=== PATIENT | female | born 2005 | race Caucasian/White ===

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

== ENCOUNTER 2023-01-02 11:35 | Emergency (ER) | payer OTHER, SELFPAY ==
--- NOTE | 2023-01-02 12:02 | ED.GENADULT ---
HPI - General Adult General Chief complaint: Psychiatric Symptoms Stated complaint: psych symptoms History of Present Illness HPI narrative: 17-year-old female presenting to the ED for evaluation after self-inflicted superficial laceration to her neck. Patient states that she did not do this with the intent to kill herself but did this as a stress reliever. Patient denies any homicidal suicidal ideation. Patient does have a history of psychiatric illness. Patient does live at home with her parents and states that she got into a verbal argument with her parents and this triggered her anxiety. Related Data Home Medications Medication Instructions Recorded Confirmed duloxetine 60 mg capsule,delayed 60 mg PO BID 09/03/21 11/02/22 release buspirone 5 mg tablet 5 mg PO BID 11/02/22 11/02/22 clonidine HCl 0.1 mg tablet 0.1 mg PO HS 11/02/22 11/02/22 nitrofurantoin 100 mg PO BID 11/02/22 11/02/22 monohydrate/macrocrystals 100 mg capsule Allergies Allergy/AdvReac Type Severity Reaction Status Date / Time No Known Allergies Allergy Verified 12/16/22 09:39 Review of Systems Review of Systems: All systems reviewed & are unremarkable except as noted in HPI and below PMFSH Past Medical History Medical History Anxiety Depression Psychosocial problem Self-harming behavior Surgical History Surgical History No pertinent past surgical history Family History Family History Grandparent Cerebrovascular accident Congestive heart failure Diabetes mellitus Hypertension Prostate carcinoma Father Chronic obstructive pulmonary disease Liver cancer Kidney failure Hepatitis B Seizure Mother Chronic obstructive pulmonary disease Hypertension Social History Social History Smoking status: Current every day smoker Tobacco type: e-cigarettes/vaping Substance use: current Substance use type: does not use Lack of Transportation: No Lack of Food: Sometimes True Current Housing: I Have Housing Concerned About Future Housing: No Difficulty Paying Gas/Electric Bills: No Difficulty Paying for Meds: No Currently Unemployed: YES Education: Grade School Difficulty w/ Childcare or Family Care: No Spiritual care concerns: No Exam Narrative: APPEARANCE: Well appearing, no pain, no distress, well-nourished. HEAD: normocephalic, atraumatic. EYES: PERRLA/EOMI, conjunctivae clear. NOSE: Normal no drainage NECK: Supple. No adenopathy, no masses. RESPIRATORY: Airway patent, respirations nonlabored. Clear to auscultation bilaterally, no rales, rhonchi, wheezing. CARDIOVASCULAR: Regular rate and rhythm without murmurs rubs or gallops. ABDOMINAL: Soft, nontender, nondistended, normal bowel sounds MUSCULOSKELETAL: Moves all extremities. Strength/ROM intact, No edema, No calf tenderness. NEURO: Alert. Cranial nerves II through XII intact. Grossly intact SKIN: Warm, dry. Normal Color PSYCHIATRIC: Anxiety and tearful affect Course Course Emergency Course: 17-year-old female presented the ED for evaluation of increased anxiety and an episode of self-harm. Patient denies any urinary symptoms. Urine culture is pending. Since patient is asymptomatic patient will not be treated with antibiotics for urinary tract infection. Patient was evaluated by the crisis counselor and patient continues to deny any homicidal or suicidal ideation. Patient signed a safety agreement and patient feels safe with the plan for discharge and close follow-up. All question concerns were addressed Reevaluation(s) Reevaluation #1: Patient is medically cleared to be evaluated by the crisis counselor. Patient is medically cleared for transport and inpatient psychiatric treatment is
[2023-01-02 12:14] VITALS: BP 148/71; PULSE 117; RESP 22; TEMP 36.3; O2SAT 97
[2023-01-02 12:24] LABS: Basophils Percent Auto 0.3 % (0.2-1.2); Eosinophils Absolute Auto 0.4 K/mm3 (0-0.3); Eosinophils Percent Auto 2.8 % (0-4.4); Hematocrit 39.3 % (37.0-47.0); Hemoglobin 11.8 g/dL (12.0-15.0); Immature Granulocyte Percent A 0.8 % (0-0.5); Lymphocytes Absolute Auto 3.09 K/mm3 (0.9-3.2); Lymphocytes Percent Auto 23.8 % (18.3-44.2); Mean Corpuscular Hemoglobin 24.2 pg (26-34); Mean Corpuscular Volume 80.7 fl (80-100); Mean Platelet Volume 9.5 fl (7.4-10.4); Monocytes Absolute Auto 0.6 K/mm3 (0.1-0.6); Monocytes Percent Auto 4.8 % (2.6-8.5); Neutrophils Absolute Auto 8.8 K/mm3 (1.3-6.7); Neutrophils Percent Auto 67.5 % (45.5-73.1); Platelet Count Result 408 k/mm3 (150-375); Red Blood Count 4.87 M/mm3 (4.2-5.4); Red Cell Distribution Width 15.4 % (11.5-14.5)
[2023-01-02 12:34] LABS: Acetaminophen < 10 ug/mL (10-30); Ethanol < 10 mg/dL (<10); Salicylate < 1.0 mg/dL (2-20)
[2023-01-02 12:35] LABS: Alanine Aminotransferase 152 U/L (6-35); Albumin Level 4.3 g/dL (3.7-5.6); Alkaline Phosphatase 55 U/L (45-116); Anion Gap 15 mmol/L (8-16); Aspartate Amino Transferase 59 U/L (14-36); Bilirubin,Total 0.4 mg/dL (0.2-1.3); Blood Urea Nitrogen 8 mg/dL (8-21); Carbon Dioxide 18 mmol/L (22-30); Chloride 109 mmol/L (98-107); Estimated Glomerular Filt Rate > 60; Glucose 139 mg/dL (65-110); Potassium 3.3 mmol/L (3.4-5.0); Sodium 142 mmol/L (134-143)
--- NOTE | 2023-01-02 13:01 | PC.NURSE ---
the patient demonstrated behaviors that are a threat to themselves, self harm to the neck. ER provider has seen and evaluated this patient face to face. The patient's immediate situation notes agitation with home situation, and threat to self. Patient identified as a suicide risk and placed in ED15, safe room. Patient placed in green scrubs. Patient belongings removed from room and secured.
[2023-01-02 13:22] LABS: Appearance Urine Turbid (Clear); Bacteria Urine 4+ /hpf; Bilirubin Urine Negative (Negative); Color Urine Yellow (Yellow); Glucose Urine UA Negative (Negative); Hyaline Casts Urine Present /lpf; Ketones Urine Trace mg/dL (Negative); Leukocyte Esterase Ur 2+ LEU/UL (Negative); Need Manual Microscopic Reviewed; Nitrate Urine Negative (Negative); Protein Urine 3+ mg/dL (Negative); Squamous Epithelial Cell Urine Many /hpf (Few); WBC Urine >100 /hpf
[2023-01-02 13:36] LABS: Amphetamine Screen Urine Negative (Negative); Barbiturate Screen Urine Negative (Negative); Benzodiazepines Screen Urine Negative (Negative); Cannabinoid Screen Urine Positive (Negative); Cocaine Screen Urine Negative (Negative); Methadone Screen Urine Negative (Negative); Opiate Screen Urine Negative (Negative); Phencyclidine Screen Urine Negative (Negative)
[2023-01-02 13:41] LABS: Add Urine Microscopic? YES
[2023-01-02] MEDS: POTASSIUM CHLORIDE 20 MEQ PACKET (FOR LIQUID) 40 MEQ PO (13:43)
[2023-01-02 15:35] VITALS: BP 119/64; PULSE 67; RESP 20; TEMP 36.6; O2SAT 98
== END 2023-01-02 15:42 | disposition home or self-care (01) ==
PROVIDERS: Emergency Provider Emergency Medicine; PCP Radiology Diagnostic Radiology
DX: F32.A Depression, unspecified (principal); F41.9 Anxiety disorder, unspecified; R45.88 Nonsuicidal self-harm; S10.90XA Unspecified superficial injury of unspecified part of neck, initial encounter; X78.9XXA Intentional self-harm by unspecified sharp object, initial encounter; F17.290 Nicotine dependence, other tobacco product, uncomplicated
CPT/HCPCS: 36415; 80053; 80307; 81001; 81025; 85025; 87086; 87088; 99284; A9270

== ENCOUNTER 2023-09-14 21:20 | Emergency (ER) | payer OTHER, SELFPAY ==
--- NOTE | ~2023-09-14 | CT_ITS ---
Noncontrast CT scan of the cervical spine Technique: Multiple contiguous axial [address] images of the cervical spine were obtained and rec onstructed in 2D sagittal and coronal planes on the acquisition scanner. Dose reduction technique was used on this scan by utilizing automated exposure control, adjustment of the mA and/or kV according to patient size. The dose-length product (DLP) was 501.29 mGy-cm. Clinical History: Pain Findings: No fractures or dislocations. There is mild reversal of the normal cervical lordosis. Othe rwise unremarkable visualized bony structures. The intervertebral disc spaces are preserved. No prev ertebral soft tissue swelling. Impression: No fracture or subluxation of the cervical spine. Mild reversal of the normal cervical lordosis. Reviewed, dictated and finalized at location . Impression: No fracture or subluxation of the cervical spine. Mild reversal of the normal cervical lordosis.
--- NOTE | ~2023-09-14 | CT_ITS ---
Non-contrast Head CT History: Headache Technique: Axial non-contrast imaging of the brain was performed. Dose reduction technique was used on this scan by utilizing automated exposure control and iterative reconstruction technique. The dose -length product (DLP) was 529.67 mGy-cm. Findings: There is no evidence of intracranial hemorrhage, mass lesion, or acute infarct. Brain par enchyma appears normal. The ventricles and subarachnoid spaces are normal in size. The calvarium ap pears normal. The visualized paranasal sinuses and mastoid air cells are clear. Impression: No significant abnormality seen. Reviewed, dictated and finalized at location . Impression: No significant abnormality seen.
[2023-09-14 21:25] VITALS: BP 120/60; PULSE 88; RESP 16; TEMP 37.1; O2SAT 98
[2023-09-15] MEDS: ACETAMINOPHEN 500 MG TABLET 1000 MG PO (00:22)
[2023-09-15] MEDS: diazePAM INJ (*CRX) 10 MG/2 ML SYRINGE 5 MG IM (00:24)
--- NOTE | 2023-09-15 00:26 | ED.HA ---
HPI - Headache General Chief Complaint: Headache Stated Complaint: NECK PAIN/HEADACHE Time Seen by Provider: 09/14/23 23:41 Source: patient Mode of arrival: ambulatory Limitations: no limitations History of Present Illness HPI Narrative: This is a 18 year old female that presents to the ER for neck pain. Reports earlier she was stretching and felt a pop. Reports pain and decreased ROM since. Reports she has been struggling with headaches for months. Reports they seem to be stress induced. She takes Ibuprofen with relief. Denies fever, vomiting, numbness or weakness. Related Data Home Medications Medication Instructions Recorded Confirmed duloxetine 60 mg capsule,delayed 60 mg PO BID 09/03/21 11/02/22 release buspirone 5 mg tablet 5 mg PO BID 11/02/22 11/02/22 clonidine HCl 0.1 mg tablet 0.1 mg PO HS 11/02/22 11/02/22 nitrofurantoin 100 mg PO BID 11/02/22 11/02/22 monohydrate/macrocrystals 100 mg capsule Allergies Allergy/AdvReac Type Severity Reaction Status Date / Time No Known Allergies Allergy Verified 09/14/23 21:28 Review of Systems Review of Systems: CONSTITUTIONAL: Denies fever EYES: Denies visual changes GASTROINTESTINAL: Denies vomiting MUSCULOSKELETAL: Reports joint pain, and myalgia. NEUROLOGIC: Reports headache. Denies numbness, or weakness. All systems reviewed & are unremarkable except as noted in HPI and below PMFSH Past Medical History Medical History Anxiety Depression Psychosocial problem Self-harming behavior Surgical History Surgical History No pertinent past surgical history Family History Family History Grandparent Cerebrovascular accident Congestive heart failure Diabetes mellitus Hypertension Prostate carcinoma Father Chronic obstructive pulmonary disease Liver cancer Kidney failure Hepatitis B Seizure Mother Chronic obstructive pulmonary disease Hypertension Social History Social History Smoking status: Current every day smoker Tobacco type: e-cigarettes/vaping Substance use: current Substance use type: does not use Lack of Transportation: No Lack of Food: Sometimes True Current Housing: I Have Housing Concerned About Future Housing: No Difficulty Paying Gas/Electric Bills: No Difficulty Paying for Meds: No Currently Unemployed: YES Education: Grade School Difficulty w/ Childcare or Family Care: No Spiritual care concerns: No Exam Narrative: GENERAL: Well-appearing, well-nourished, and in no acute distress. HEAD: Normocephalic, atraumatic. EYES: PERRLA and EOMI. ENT: Nares clear, no rhinorrhea or epistaxis. Mucous membranes moist. Oropharynx without tonsillar hypertrophy exudate or other lesions. Bilateral TMs pearly preciado non-bulging NECK: Supple. No adenopathy or masses. Normal range of motion. Tender to palpation of paraspinal musculature bilaterally CHEST: Clear to auscultation. No respiratory distress. No wheezes rales or rhonchi HEART: Regular rate and rhythm. No murmur heard. Normal peripheral pulses. EXTREMITIES: Normal range of motion. No edema. Strength equal in bilateral upper extremities (5/5) SKIN: Warm, dry, no rash. NEURO: No focal deficits. Alert and oriented x3. Cranial nerves 2-12 grossly intact PSYCH: Normal mood and affect Course Course Emergency Course: Patient updated on her workup and agrees with plan of care Vital Signs Vital signs: Vital Signs Temperature 98.8 F 09/14/23 21:25 Pulse Rate 88 09/14/23 21:25 Respiratory Rate 16 09/14/23 21:25 Blood Pressure 120/60 09/14/23 21:25 Pulse Oximetry 98 09/14/23 21:25 Oxygen Delivery Room Air 09/14/23 21:25 Temperature 98.8 F 09/14/23 21:25 Pulse Rate 82 05
[2023-09-15 02:39] VITALS: BP 130/74; PULSE 82; RESP 18; O2SAT 100
== END 2023-09-15 03:20 | disposition home or self-care (01) ==
PROVIDERS: Emergency Provider Physician Assistant; PCP Radiology Diagnostic Radiology
DX: M54.2 Cervicalgia (principal); R51.9 Headache, unspecified; F41.9 Anxiety disorder, unspecified; F32.A Depression, unspecified; F17.290 Nicotine dependence, other tobacco product, uncomplicated
CPT/HCPCS: 70450; 72125; 96372; 99284; A9270; J3360

== ENCOUNTER 2023-09-17 20:23 | Emergency (ER) | payer OTHER, SELFPAY ==
[2023-09-17 20:25] VITALS: BP 120/58; PULSE 81; RESP 18; TEMP 36.8; O2SAT 99
--- NOTE | 2023-09-17 20:42 | ED.DENTAL ---
HPI - Dental/Oral General Chief complaint: Dental/Oral Stated complaint: tooth hurts, black and cracked, top right Time Seen by Provider: 09/17/23 20:24 Source: patient Mode of arrival: ambulatory Limitations: no limitations History of Present Illness HPI Narrative: Patient is a 18-year-old female who presents the ED with report of right upper dental pain. Patient reports she has had pain in her right upper posterior molar, tooth #2 since yesterday morning. Has been taking Tylenol and ibuprofen without improvement. Reports a crack in this tooth, unsure when this occurred. She has not tried following up with a dentist. Denies drainage from tooth, difficulty breathing or swallowing, fevers, vomiting. Related Data Home Medications Medication Instructions Recorded Confirmed duloxetine 60 mg capsule,delayed 60 mg PO BID 09/03/21 11/02/22 release buspirone 5 mg tablet 5 mg PO BID 11/02/22 11/02/22 clonidine HCl 0.1 mg tablet 0.1 mg PO HS 11/02/22 11/02/22 nitrofurantoin 100 mg PO BID 11/02/22 11/02/22 monohydrate/macrocrystals 100 mg capsule Allergies Allergy/AdvReac Type Severity Reaction Status Date / Time No Known Allergies Allergy Verified 09/14/23 21:28 Review of Systems Review of Systems: CONSTITUTIONAL: Denies fever, chills, or sweats. ENT: See HPI CARDIOVASCULAR: Denies chest pain RESPIRATORY: Denies cough or dyspnea. GASTROINTESTINAL: Denies abdominal pain, nausea, vomiting All systems reviewed & are unremarkable except as noted in HPI and below PMFSH Past Medical History Medical History Anxiety Depression Psychosocial problem Self-harming behavior Surgical History Surgical History No pertinent past surgical history Family History Family History Grandparent Cerebrovascular accident Congestive heart failure Diabetes mellitus Hypertension Prostate carcinoma Father Chronic obstructive pulmonary disease Liver cancer Kidney failure Hepatitis B Seizure Mother Chronic obstructive pulmonary disease Hypertension Social History Social History Smoking status: Current every day smoker Tobacco type: e-cigarettes/vaping Substance use: current Substance use type: does not use Lack of Transportation: No Lack of Food: Sometimes True Current Housing: I Have Housing Concerned About Future Housing: No Difficulty Paying Gas/Electric Bills: No Difficulty Paying for Meds: No Currently Unemployed: YES Education: Grade School Difficulty w/ Childcare or Family Care: No Spiritual care concerns: No Exam Narrative: GENERAL: Well appearing, obese with BMI of 32.3, non-toxic, in no acute distress. HEAD: Normocephalic, atraumatic. ENT: Poor dentition. Scattered dental caries. Doreen noted to tooth #2, tenderness along outer gumline surrounding tooth, no focal abscess or fluctuance. No trismus or stridor. MMs moist. RESPIRATORY: Airway patent, respirations nonlabored. No stridor or distress. CARDIOVASCULAR: Regular rate and rhythm MUSCULOSKELETAL: Moves all extremities. No gross deformities. SKIN: Warm, dry, normal color. NEURO: A&O X3. Speech clear. PSYCHIATRIC: Appropriate mood and affect. Normal interaction. Course Vital Signs Vital signs: Vital Signs Temperature 98.3 F 09/17/23 20:25 Pulse Rate 81 09/17/23 20:25 Respiratory Rate 18 09/17/23 20:25 Blood Pressure 120/58 L 09/17/23 20:25 Pulse Oximetry 99 09/17/23 20:25 Oxygen Delivery Room Air 09/17/23 20:25 Temperature 98.3 F 09/17/23 20:25 Pulse Rate 81 09/17/23 20:25 Respiratory Rate 18 09/17/23 20:25 Blood Pressure 120/58 L 09/17/23 20:25 Pulse Oximetry 99 09/17/23 20:25 Oxygen Delivery Room Air 09/17/23 20:25
[2023-09-17] MEDS: AMOXICILLIN/CLAVULANATE K 875-125 MG TAB 1 TABLET PO (20:48)
[2023-09-17] MEDS: KETOROLAC (*BKC) 60 MG/2 ML VIAL IM (20:48)
== END 2023-09-17 21:26 | disposition home or self-care (01) ==
LOC: ANHED 20:58
PROVIDERS: Emergency Provider Physician Assistant; PCP Internal Medicine Gastroenterology
DX: K08.89 Other specified disorders of teeth and supporting structures (principal); K02.9 Dental caries, unspecified
CPT/HCPCS: 96372; 99283; A9270; J1885

== ENCOUNTER 2023-12-03 19:54 | Emergency (ER) | payer MEDICAID, SELFPAY ==
[2023-12-03 19:55] VITALS: BP 103/50; PULSE 76; RESP 20; TEMP 36.5; O2SAT 100
--- NOTE | 2023-12-03 21:34 | ED.EAR ---
HPI - Ear Problem General Chief complaint: Ear Stated complaint: dental pain Time Seen by Provider: 12/03/23 20:58 History of Present Illness HPI Narrative: 18-year-old female presents to the emergency department for bilateral ear pain. States it feels like her ears are clogged. Also states that she notices crusting on her pillow after she lays down. Denies fever, nausea vomiting. Related Data Home Medications Medication Instructions Recorded Confirmed duloxetine 60 mg capsule,delayed 60 mg PO BID 09/03/21 11/02/22 release buspirone 5 mg tablet 5 mg PO BID 11/02/22 11/02/22 clonidine HCl 0.1 mg tablet 0.1 mg PO HS 11/02/22 11/02/22 nitrofurantoin 100 mg PO BID 11/02/22 11/02/22 monohydrate/macrocrystals 100 mg capsule Allergies Allergy/AdvReac Type Severity Reaction Status Date / Time No Known Allergies Allergy Verified 12/03/23 20:00 Review of Systems Review of Systems: All systems reviewed & are unremarkable except as noted in HPI and below PMFSH Past Medical History Medical History Anxiety Depression Psychosocial problem Self-harming behavior Surgical History Surgical History No pertinent past surgical history Family History Family History Grandparent Cerebrovascular accident Congestive heart failure Diabetes mellitus Hypertension Prostate carcinoma Father Chronic obstructive pulmonary disease Liver cancer Kidney failure Hepatitis B Seizure Mother Chronic obstructive pulmonary disease Hypertension Social History Social History Smoking status: Current every day smoker Tobacco type: e-cigarettes/vaping Substance use: current Substance use type: does not use Lack of Transportation: No Lack of Food: Sometimes True Current Housing: I Have Housing Concerned About Future Housing: No Difficulty Paying Gas/Electric Bills: No Difficulty Paying for Meds: No Currently Unemployed: YES Education: Grade School Difficulty w/ Childcare or Family Care: No Spiritual care concerns: No Exam Narrative: GENERAL: Well-appearing, well-nourished, and in no acute distress. HEAD: Normocephalic, atraumatic. EYES: PERRLA and EOMI. ENT: Nares clear, no rhinorrhea or epistaxis. Mucous membranes moist. Bilateral TMs are preciado nonbulging with serous otitis media. Normal light reflex. Canals mildly erythematous without active drainage. No mastoid tenderness bilaterally. Pain with movement of pinna bilaterally NECK: Supple. CHEST: Clear to auscultation. No respiratory distress. HEART: Regular rate and rhythm. No murmur heard. Normal peripheral pulses. EXTREMITIES: Normal range of motion. No edema. SKIN: Warm, dry, no rash. NEURO: No focal deficits. Alert and oriented x3 Course Vital Signs Vital signs: Vital Signs Temperature 97.7 F 12/03/23 19:55 Pulse Rate 76 12/03/23 19:55 Respiratory Rate 20 12/03/23 19:55 Blood Pressure 103/50 L 12/03/23 19:55 Pulse Oximetry 100 12/03/23 19:55 Oxygen Delivery Room Air 12/03/23 19:55 Temperature 97.7 F 12/03/23 19:55 Pulse Rate 76 12/03/23 19:55 Respiratory Rate 20 12/03/23 19:55 Blood Pressure 103/50 L 12/03/23 19:55 Pulse Oximetry 100 12/03/23 19:55 Oxygen Delivery Room Air 12/03/23 19:55 Medical Decision Making [facility] Narrative Medical decision making narrative: 18-year-old female presents emergency department for bilateral ear pain, clotting sensation and crusting out of her ear. Vital stable. She is afebrile nontoxic appearing. Exam is significant for bilateral serous otitis media. TMs are otherwise preciado nonbulging with normal light reflex. She does have pain with movement of the pinna and mildly erythematous canals. Given exam
[2023-12-03 21:47] VITALS: BP 108/56; PULSE 68; RESP 16; O2SAT 100
== END 2023-12-03 21:48 | disposition home or self-care (01) ==
PROVIDERS: Emergency Provider Physician Assistant; PCP Internal Medicine Gastroenterology
DX: H65.03 Acute serous otitis media, bilateral (principal); H60.503 Unspecified acute noninfective otitis externa, bilateral; F41.9 Anxiety disorder, unspecified; F32.A Depression, unspecified; F17.290 Nicotine dependence, other tobacco product, uncomplicated; Z79.899 Other long term (current) drug therapy
CPT/HCPCS: 99283

== ENCOUNTER 2023-12-16 22:09 | Emergency (ER) | payer MEDICAID, SELFPAY ==
[2023-12-16 22:23] VITALS: BP 113/58; PULSE 111; RESP 20; TEMP 37.3; O2SAT 99
[2023-12-17] VITALS (9 sets, daily range): BP systolic 93–117; BP diastolic 51–67; PULSE 86–98; RESP 14–23; O2SAT 97–100
[2023-12-17 05:44] LABS: BEDSIDEPREGUCG Negative
[2023-12-17 05:53] LABS: Add Urine Microscopic? YES; Appearance Urine Turbid (Clear); Bacteria Urine 4+ /hpf; Bilirubin Urine Negative (Negative); Blood Urine Negative (Negative); Color Urine Dark Yellow (Yellow); Glucose Urine UA Negative (Negative); Ketones Urine Negative (Negative); Leukocyte Esterase Ur 2+ LEU/UL (Negative); Need Manual Microscopic Reviewed; Nitrate Urine Negative (Negative); Non Pathogenic Casts 0-2; Protein Urine 1+ mg/dL (Negative); Specific Grav Ur 1.021 (1.001-1.035); Squamous Epithelial Cell Urine Many /hpf (Few); WBC Urine >100 /hpf (0-3); pH Urine 5.5 (5.0-9.0)
--- NOTE | 2023-12-17 06:06 | ED.BACK ---
HPI - Back Pain/Injury General Chief Complaint: Back Pain/Injury Stated Complaint: back pain radiating up body Time Seen by Provider: 12/17/23 06:02 Source: patient and other Mode of arrival: ambulatory Limitations: no limitations History of Present Illness HPI Narrative: Patient presents with left flank pain/back pain as well as pain throughout the left side of her body and into her legs. Also nausea. 6/10 pain now. She had been seen at [facility] 2 days ago and diagnosed with gastritis but prescribed Naproxen and Flexeril. Work up reportedly included labs, UA, and a CT scan. Has not been taking the Naproxen. Feels like she has a lung tightness and squeezing. Not on antibiotics. She missed work and is hoping for a work note for today since she has been in the ED for several hours spanning overnight. Has been having dysuria, urgency and frequency but no hematuria. Related Data Home Medications Medication Instructions Recorded Confirmed duloxetine 60 mg capsule,delayed 60 mg PO BID 09/03/21 11/02/22 release buspirone 5 mg tablet 5 mg PO BID 11/02/22 11/02/22 clonidine HCl 0.1 mg tablet 0.1 mg PO HS 11/02/22 11/02/22 nitrofurantoin 100 mg PO BID 11/02/22 11/02/22 monohydrate/macrocrystals 100 mg capsule Allergies Allergy/AdvReac Type Severity Reaction Status Date / Time No Known Allergies Allergy Verified 12/16/23 22:27 [facility] Past Medical History Medical History Anxiety Depression History of epidural anesthesia 2022 Psychosocial problem Self-harming behavior Surgical History Surgical History No pertinent past surgical history Family History Family History Grandparent Cerebrovascular accident Congestive heart failure Diabetes mellitus Hypertension Prostate carcinoma Father Chronic obstructive pulmonary disease Liver cancer Kidney failure Hepatitis B Seizure Mother Chronic obstructive pulmonary disease Hypertension Social History Social History Smoking status: Current every day smoker Tobacco type: e-cigarettes/vaping Substance use: current Substance use type: does not use Lack of Transportation: No Lack of Food: Sometimes True Current Housing: I Have Housing Concerned About Future Housing: No Difficulty Paying Gas/Electric Bills: No Difficulty Paying for Meds: No Currently Unemployed: YES Education: Grade School Difficulty w/ Childcare or Family Care: No Spiritual care concerns: No Exam Narrative: GENERAL: Well-appearing, well-nourished, and in no acute distress. HEAD: Normocephalic, atraumatic. EYES: Non injected, non icteric ENT: Nares clear, no rhinorrhea or epistaxis. Tacky mucous membranes. NECK: Supple. CHEST: Speaking in full sentences. No respiratory distress. HEART: Regular rate and rhythm. . ABDOMEN: Soft, nondistended. : CVA tenderness on the left; absent on the right. EXTREMITIES: Normal range of motion. No lower extremity edema. SKIN: Warm, dry, no rash. NEURO: No focal deficits. Alert and oriented x3. PSYCH: Normal mood and affect. Course Vital Signs Vital signs: Vital Signs Temperature 99.2 F 12/16/23 22:23 Pulse Rate 111 H 12/16/23 22:23 Respiratory Rate 20 12/16/23 22:23 Blood Pressure 113/58 L 12/16/23 22:23 Pulse Oximetry 99 12/16/23 22:23 Oxygen Delivery Room Air 12/16/23 22:23 Temperature 99.2 F 12/16/23 22:23 Pulse Rate 89 12/17/23 07:01 Respiratory Rate 22 H 12/17/23 07:01 Blood Pressure 101/67 12/17/23 07:01 Pulse Oximetry 100 12/17/23 07:01 Oxygen Delivery Room Air 12/17/23 05:22 MDM - Back Pain/Injury MDM Narrative Medical decision making narrative: Patient presents with multiple complaints. Recently seen at
[2023-12-17] MEDS: SODIUM CHLORIDE 0.9% IV 1,000 ML 999 ML IV CONT (06:37)
[2023-12-17] MEDS: ONDANSETRON INJ 4 MG/2 ML VIAL IV PUSH (06:38)
[2023-12-17] MEDS: KETOROLAC 15 MG/ML VIAL (*BKC) IV PUSH (06:42)
== END 2023-12-17 07:28 | disposition home or self-care (01) ==
PROVIDERS: Emergency Provider Student in an Organized Health Care Education/Training Program; PCP Internal Medicine Gastroenterology
DX: N12 Tubulo-interstitial nephritis, not specified as acute or chronic (principal); R11.0 Nausea; M54.9 Dorsalgia, unspecified; F41.9 Anxiety disorder, unspecified; F32.A Depression, unspecified; F17.290 Nicotine dependence, other tobacco product, uncomplicated
CPT/HCPCS: 81001; 81025; 87086; 87088; 96365; 96375; 99284; J0696; J1885; J2405; J7030

== ENCOUNTER 2024-02-12 14:30 | Emergency (ER) | payer OTHER, SELFPAY ==
[2024-02-12 14:32] VITALS: BP 107/59; PULSE 120; RESP 18; TEMP 37.6; O2SAT 99
--- NOTE | 2024-02-12 15:48 | ED.FEMALEGU ---
HPI - Female Genitourinary General Chief complaint: Urogenital-Female Stated complaint: kidney infection Time Seen by Provider: 02/12/24 15:40 Focused HPI: Patient is a 19-year-old female who presents to the ER with bilateral back pain for 2 days. She reports her right side is worse than her left. Patient endorses pain that radiates across her upper buttocks, then travels up her spine. she also endorses a headache. Patient reports she has had burning with urination and difficulty emptying her bladder. She reports her medical history includes multiple UTIs and ENT issues. Patient denies chest pain, shortness a breath, abdominal pain. GENERAL: Well-appearing, well-nourished, and in no acute distress. HEAD: Normocephalic, atraumatic. CHEST: Clear to auscultation. ?No respiratory distress. HEART: Regular rate and rhythm.? NEURO: ?Alert and oriented x3. Patient screened in triage and initial orders placed.? ?Additional care and disposition to be based upon?diagnostic testing and treatment. Related Data Home Medications Medication Instructions Recorded Confirmed duloxetine 60 mg capsule,delayed 60 mg PO BID 09/03/21 11/02/22 release buspirone 5 mg tablet 5 mg PO BID 11/02/22 11/02/22 clonidine HCl 0.1 mg tablet 0.1 mg PO HS 11/02/22 11/02/22 nitrofurantoin 100 mg PO BID 11/02/22 11/02/22 monohydrate/macrocrystals 100 mg capsule Allergies Allergy/AdvReac Type Severity Reaction Status Date / Time No Known Allergies Allergy Verified 02/12/24 14:31 [facility] Past Medical History Medical History Anxiety Depression History of epidural anesthesia 2022 Psychosocial problem Self-harming behavior Surgical History Surgical History No pertinent past surgical history Family History Family History Grandparent Cerebrovascular accident Congestive heart failure Diabetes mellitus Hypertension Prostate carcinoma Father Chronic obstructive pulmonary disease Liver cancer Kidney failure Hepatitis B Seizure Mother Chronic obstructive pulmonary disease Hypertension Social History Social History (Reviewed 12/03/23 @ 21:35 by JOANN Singh Smoking status: Current every day smoker Tobacco type: e-cigarettes/vaping Substance use: current Substance use type: does not use Lack of Transportation: No Lack of Food: Sometimes True Current Housing: I Have Housing Concerned About Future Housing: No Difficulty Paying Gas/Electric Bills: No Difficulty Paying for Meds: No Currently Unemployed: YES Education: Grade School Difficulty w/ Childcare or Family Care: No Spiritual care concerns: No Course Vital Signs Vital signs: Vital Signs Temperature 99.7 F H 02/12/24 14:32 Pulse Rate 120 H 02/12/24 14:32 Respiratory Rate 18 02/12/24 14:32 Blood Pressure 107/59 L 02/12/24 14:32 Pulse Oximetry 99 02/12/24 14:32 Oxygen Delivery Room Air 02/12/24 14:32 Temperature 99.7 F H 02/12/24 14:32 Pulse Rate 120 H 02/12/24 14:32 Respiratory Rate 18 02/12/24 14:32 Blood Pressure 107/59 L 02/12/24 14:32 Pulse Oximetry 99 02/12/24 14:32 Oxygen Delivery Room Air 02/12/24 14:32 MDM - Female Genitourinary Lab Data 02/12/24 16:34 02/12/24 16:34 Labs: Lab Results 02/12/24 02/12/24 02/12/24 Range/Units 16:23 16:34 17:06 WBC 13.5 H (4.5-10.0) K/mm3 RBC 5.67 H (4.2-5.4) M/mm3 Hgb 14.4 (12.0-15.0) g/dL Hct 45.1 (37.0-47.0) % MCV 79.5 L (80-100) fl MCH 25.4 L (26-34) pg MCHC 31.9 L (32-36) g/dl RDW 15.9 H (11.5-14.5) % Plt Count 307 (150-375) k/mm3 MPV 9.9 (7.4-10.4) fl Immature Gran % (Auto) 0.4 (0-0.5) % Neut % (Auto) 85.3 H (45.5-73.1) % Lymph % (Auto) 7.8 L (1
[2024-02-12] MEDS: HYDROcodone/acetaminophen (*CRX) 5-325 MG TABLET 1 TAB PO (16:21)
[2024-02-12 16:26] LABS: BEDSIDEPREGUCG Negative (Negative)
[2024-02-12 16:49] LABS: Add Urine Microscopic? YES; Appearance Urine Cloudy (Clear); Bacteria Urine 4+ /hpf; Bilirubin Urine Negative (Negative); Blood Urine Trace (Negative); Color Urine Yellow (Yellow); Glucose Urine UA Negative (Negative); Ketones Urine Trace mg/dL (Negative); Leukocyte Esterase Ur 3+ LEU/UL (Negative); Nitrate Urine Negative (Negative); Protein Urine 1+ mg/dL (Negative); RBC Urine 0-2 /hpf (0-2); Specific Grav Ur 1.017 (1.001-1.035); Squamous Epithelial Cell Urine Occasional /hpf (Few); Urobilinogen Urine 0.2 mg/dL (<2.0); WBC Urine >100 /hpf (0-3); pH Urine 5.5 (5.0-9.0)
[2024-02-12 16:51] LABS: Basophils Percent Auto 0.2 % (0.2-1.2); Eosinophils Percent Auto 0.1 % (0-4.4); Hematocrit 45.1 % (37.0-47.0); Hemoglobin 14.4 g/dL (12.0-15.0); Immature Granulocyte Absolute 0.05 K/mm3 (0.00-0.031); Immature Granulocyte Percent A 0.4 % (0-0.5); Lymphocytes Absolute Auto 1.05 K/mm3 (0.9-3.2); Lymphocytes Percent Auto 7.8 % (18.3-44.2); Mean Corpuscular HGB Conc 31.9 g/dl (32-36); Mean Corpuscular Hemoglobin 25.4 pg (26-34); Mean Corpuscular Volume 79.5 fl (80-100); Mean Platelet Volume 9.9 fl (7.4-10.4); Monocytes Absolute Auto 0.8 K/mm3 (0.1-0.6); Monocytes Percent Auto 6.2 % (2.6-8.5); Neutrophils Absolute Auto 11.6 K/mm3 (1.3-6.7); Neutrophils Percent Auto 85.3 % (45.5-73.1); Platelet Count Result 307 k/mm3 (150-375); Red Blood Count 5.67 M/mm3 (4.2-5.4); Red Cell Distribution Width 15.9 % (11.5-14.5); White Blood Count 13.5 K/mm3 (4.5-10.0)
[2024-02-12 16:55] LABS: INR 1.2; Prothrombin Time 15.9 Seconds (11.1-14.7)
[2024-02-12 17:02] LABS: Alanine Aminotransferase 11 U/L (6-35); Alkaline Phosphatase 55 U/L (38-126); Anion Gap 12 mmol/L (4-12); Aspartate Amino Transferase 14 U/L (14-36); Bilirubin,Total 0.7 mg/dL (0.2-1.3); Blood Urea Nitrogen 9 mg/dL (7-17); CRP 4.1 mg/dL (<1.0); Calcium 10.1 mg/dL (8.4-10.2); Carbon Dioxide 26 mmol/L (22-30); Chloride 100 mmol/L (98-107); Estimated CRCL calculation 103 ml/min; Estimated Glomerular Filt Rate > 60; Glucose 96 mg/dL (65-110); Potassium 3.6 mmol/L (3.4-5.0); Sodium 138 mmol/L (137-145)
[2024-02-12 17:11] LABS: Troponin I < 0.012 ng/mL (0.000-0.034)
[2024-02-12 17:20] LABS: Influenza A QL RT-PCR Negative (Negative); Influenza B QL RT-PCR Negative (Negative); RSV RNA, RT-PCR Negative (Negative); SARS-CoV-2 RNA PCR Negative (Negative)
[2024-02-12 17:26] LABS: Lactic Acid Reflex 1.3 mmol/L (0.7-2.0)
[2024-02-12] MEDS: SODIUM CHLORIDE 0.9% IV 1,000 ML 999 ML IV CONT (17:33)
[2024-02-12 18:46] VITALS: BP 109/60; PULSE 84; RESP 22; O2SAT 99
== END 2024-02-12 18:57 | disposition home or self-care (01) ==
PROVIDERS: Registered Nurse; Emergency Provider Emergency Medicine; PCP Internal Medicine Gastroenterology
DX: N39.0 Urinary tract infection, site not specified (principal); Z20.822 Contact with and (suspected) exposure to COVID-19; F17.290 Nicotine dependence, other tobacco product, uncomplicated; F41.9 Anxiety disorder, unspecified; F32.A Depression, unspecified
CPT/HCPCS: 36415; 80053; 81001; 81025; 83605; 84484; 85025; 85610; 85730; 86140; 87040; 87077; 87086; 87186; 87637; 96361; 96365; 99284; A9270; J0696; J7030

== ENCOUNTER 2024-12-05 14:52 | Outpatient (CLI) | payer OTHER, SELFPAY ==
--- OUTSIDE RECORDS SUMMARY | 2024-12-05 14:56 | XMS_ITS | Clinical Summary ---
Author Organization [facility] [address] Address [address] [place] [address] Care Team Providers Care Image Scientist Name Role Phone Unknown, Notinfile Primary Care Provider Unavail able Allergies No known active allergies Medications naproxen (NAPROSYN) 500 mg tablet Take 1 tablet (500 mg total) by mouth 2 (two) times a day with meals 60 tablet 12/14/2023 Active cyclobenzaprine (FLEXERIL) 10 mg tablet Take 1 tablet (10 mg total) by mouth 3 (three) times a day as needed for muscle spasms for up to 10 days 30 tablet 12/14/2023 Active Medical History Medical History Date Comments ADHD (attention deficit hyperactivity disorder) Social History Tobacco Use Types Packs/Day Years Used Date Smoking Tobacco: Never Smokeless Tobacco: Never Personal Safety Answer Date Recorded Have you ever been in or are you currently in a harmful physical or emotional relationship or is someone making you feel afraid or unsafe? 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 Gender Identity Not on file Sexual Orientation Not on file Obstetrics History Last Filed Vital Signs Vital Sign Reading Time Taken Comments Blood Pressure 106/64 12/14/2023 10:30 PM CDT Pulse 80 12/14/2023 10:30 PM CDT Temperature 37.6 C (99.6 F) 12/14/2023 8:34 PM CDT Respiratory Rate 16 12/14/2023 8:34 PM CDT Oxygen Saturation 97% 12/14/2023 10: 30 PM CDT Inhaled Oxygen Concentration - - Weight 80.6 kg (177 lb 11.1 oz) 12/14/2023 8:34 PM CDT Height 167.6 cm (5' 6) 10/24/2018 11:2 4 AM CDT Body Mass Index - - Plan of Treatment Health Maintenance Due Date Last Done Comments Cervical Cancer Screening 2003 Depression Screening 2003 Hepatitis C Screening 2003 Meningococcal B Vaccine (1 of 2 - Standard) 2019 Regular Well Visit/Exam 18-64 2021 DTaP/Tdap/Td Vaccine (7 - Td or Tdap) 09/23/2024 09/23/2014, 09/23/2008, 07/22/2004, Additional history exists Influenza Vaccine (#1) 2024 , 02/06/2017, 02/01/2011, Additional history exists Hepatitis B Screening Completed 2003 , 2003, 2003, Additional history exists Pneumococcal vaccine <65 Completed 004, 2003, 2003 Varicella Vaccines Completed 09/23/2008, 01/15/2004 Meningococcal Vaccine Aged Out 09/23/2014 No loly shalini eligible based on patient's age to complete this topic HPV Vaccines Completed 04/23/2015, 05/2014, 01/17/2014 Insurance [facility] Care Teams Image Scientist Relationship Specialty Start Date End Date Unknown, Notinfile PCP - General 10/24/18
--- OUTSIDE RECORDS SUMMARY | 2024-12-05 14:56 | XMS_ITS | Clinical Summary ---
Author Organization [facility] Address [address] [place] [address] Care Team Providers Care Mainspring Former Brace End Name Role Phone Unavailable Primary Care Provider Unavailabl e Source Comments [facility],non-owned Affiliates and Associated Physician Practices is amultiple site organization consisting of ambulatory clinics and hospital sitesin [place], [place], [place] and [place]. This disclosure is being madepursuant to the Care Everywhere program and may not contain all information available regarding this patient. Last updated 18.[facility] Allergies No known active allergies Medications * Be aware that medications may not be up to date on this document. Alwaysverify current medications with the patient. 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) 07/12/2022 Concussion 12/16/2017 Neck pain 12/16/2017 Dizziness and giddiness 12/16/2017 Head ache 12/16/2017 Fracture of skull with delayed healing 5 DARWIN (obstructive sleep apnea) 08/12/2013 Overview (08/12/2013): diag psg 07/25/13 darwin with sleep related hypoventilation AHI 2.0 obs AHI 1.6 92% Social History Tobacco Use Types Packs/Day Years Used Date Smoking Tobacco: Every Day Cigarettes Smokeless Tobacco: Never Alcohol Use Standard Drinks/Week Comments Yes 0 (1 standard drink = 0.6 oz pur e alcohol) occassionally Comments No Sex and Gender Information Value Date Recorded Sex Assigned at Not on file Legal Sex Female 1:38 PM CDT Gender Identity Not on file Sexual Orientation Not on file Last Filed Vital Signs Vital Sign Reading Time Taken Comments Blood Pressure 129/69 11/01/2022 2:50 PM CDT Pulse 80 11/01/2022 2:50 PM CDT Temperature 36.6 C (97.9 F) 07/09/2020 2:30 AM CDT Respiratory Rate 18 07/09/2020 2:30 AM CDT Oxygen Saturation 100% 07/09/2020 2:30 AM CDT Inhaled Oxygen Concentration - - Weight 92.5 kg (204 lb) 07/08/2020 9:31 PM CDT Height 167.6 cm (5' 6) 07/08/2020 9:31 PM CDT Body Mass Index 32.93 07/08/2020 9:31 PM CDT Plan of Treatment Health Maintenance Due Date Last Done Comments HIV SCREENING 2018 HPV VACCINE (1 - 3-dose series) 2018 CHLAMYDIA/GONORRHEA SCREENING 2019 MENINGOCOCCAL (Group B) VACCINE SHARED DECISION-MAKING (1 of 2 - Standard) 2019 HEPATITIS C SCREENING 01/08/2021 DTAP/TDAP/TD VACCINES (1 - Tdap) 2022 HEPATITIS B VACCINE (1 of 3 - 19+ 3-dose series) 2022 PNEUMOCOCCAL VACCINE (1 of 2 - PCV) 2022 COVID-19 VACCINE (2 - 2023- season) 2023 07/28/2020 PAP SMEAR 01/14/2024 DEPRESSION SCREENING 04/24/2024 INFLUENZA VACCINE (#1) 2024 2, 02/06/2017, 02/01/2011, Additional history exists ZOSTER VACCINE (1 of 2) 2053 HIB VACCINE Aged Out No longer eligi ble based on patient's age to complete this topic MENINGOCOCCAL GROUPS A/C/Y/W VACCINE Aged Out No longer eligible based on patient's age to complete this topic Insurance [facility] MEDICAID - OUT OF STATE [facility]
== END 2024-12-05 14:53 | disposition home or self-care (01) ==
LOC: ANHLAB 14:53
PROVIDERS: Visit Provider Obstetrics & Gynecology
DX: R10.2 Pelvic and perineal pain (principal)
CPT/HCPCS: 36415; 86850; 86900; 86901

== ENCOUNTER 2024-12-13 02:41 | Day surgery (SDC) | payer OTHER, SELFPAY ==
--- NOTE | 2024-12-03 09:45 | SUR.PREOP ---
Report to the Outpatient Waiting Room, entrance under the green pavilion located off [facility], at time _0715_ on date _12/13/24_. Planned Procedure Time: _0915_.? Time changes happen often and if your time is changed the preop area will call you the afternoon before. - You and your visitor will be asked to self-screen and do not enter if you have any COVID symptoms. Please call surgeon if you need to reschedule. - A mask is optional within the hospital at this time. Patients may have clear liquids (water, carbonated beverages, clear teas, apple juice) until 3 hours (0615) prior to surgery with a maximum of 20 ounces. - No food from midnight until time of surgery and no smoking, or chewing tobacco (or any form of nicotine). No chewing gum, candy or mints. Take only the following medications with a SIP of water on the morning of surgery: _NA_ DO NOT STOP ANY OF YOUR OTHER PRESCRIPTION MEDICATIONS PRIOR TO SURGERY EXCEPT THE FOLLOWING Hold all vitamins and supplements for 3 days per anesthesiologist. Medications to discontinue per physician _NA_ Date to take last dose_NA_ Please no make-up, nail niuean, hairspray, perfume, deodorant, or body powder the day of surgery.? No jewelry (including any body piercings) or valuables the day of surgery, leave them at home.? Please take a shower or bath the night before, or the morning of, surgery with an antibacterial soap.? Wear comfortable, loose fitting clothing.? - Jewelry must be removed prior to entering the operating room.? Rings and piercings that are not removed may be cut off. - The hospital will not accept responsibility for valuables.? - Please leave all valuables, including medications, at home the day of surgery. If you are going home after surgery, a licensed starting gate driver must drive you home.? - NO public transportation without another adult if you receive anesthesia. - We recommend that an adult stay with you for 24 hours following discharge. - We also recommend that you do not drive, make important decision, drink alcoholic beverages, or take any drugs that were not prescribed by your health care provider for at least 24 hours after your discharge time. Follow any additional instructions given to you from your surgeon. Telephone instructions given to _MYA_and asked if any additional questions and then verbalized understanding. Patient advised to call surgeon office or pre surgery nurse liaison [phone] if any additional questions.
[2024-12-03 09:57] VITALS: BMI 23.9
--- NOTE | 2024-12-11 07:39 | P.HP_ITS ---
H&P: HPI History of Present Illness Date/Time: 12/11/24 07:39 Chief Complaint: Left ovarian cyst Narrative: is a 19 year 1 para 1 who is admitted for laparoscopic left ovarian cystectomy. The patient has had pain discomfort and dyspareunia. She had negative STD testing she has no bowel complaints she has been and lap sac secondary to severe pain ultrasound shows the left ovarian cyst. Endometriosis is suspected. In light of her continued pain she is offered laparoscopy with left ovarian cystectomy risks and benefits reviewed including but not exclusive of , aspiration pneumonia bleeding, transfusion, perforation injury to bowel, bladder, ureters, or other internal organs with need for open laparotomy. She received the ACOG handout entitled laparoscopy. She had all questions answered. She asked to proceed. Review of Systems Review of Systems: All systems reviewed & are unremarkable except as noted in HPI and below PMFSH Past Medical History Medical History History of epidural anesthesia 2022 Self-harming behavior Psychosocial problem Anxiety Depression Surgical History Surgical History No pertinent past surgical history Family History Family History Grandparent Cerebrovascular accident Congestive heart failure Diabetes mellitus Hypertension Prostate carcinoma Father Chronic obstructive pulmonary disease Liver cancer Kidney failure Hepatitis B Seizure Mother Chronic obstructive pulmonary disease Hypertension Social History Social History Smoking status: Current every day smoker Tobacco type: cigarettes and e-cigarettes/vaping Second hand tobacco smoke exposure: Yes Additional smoking assessment comments: VAPES DAILY ONLY SMOKES CIGARETTES IF SHE DOESNT HAVE HER VAPE Alcohol intake: current Alcohol use details: SOCIALLY Substance use: current Substance use type: marijuana Other substance usage details: smokes daily Lack of Transportation: No Lack of Food: Sometimes True Current Housing: I Have Housing Concerned About Future Housing: No Difficulty Paying Gas/Electric Bills: No Difficulty Paying for Meds: No Currently Unemployed: YES Education: Grade School Difficulty w/ Childcare or Family Care: No Living arrangements: with family Spiritual care concerns: No Meds Home Medications and Allergies Home Medications ?Medication ?Instructions ?Recorded ?Confirmed ?Type No Home Medications 12/03/24 12/03/24 H istory Allergies Allergy/AdvReac Type Severity Reaction Status Date / Time No Known Allergies Allergy Verified 12/03/24 09:35 Exam Const: General: cooperative, healthy appearing and comfortable Nutritional Appearance: average body habitus Orientation/consciousness: oriented to person, oriented to place and oriented to time HENMT: Head: normal to inspection Resp: Effort & Inspection: normal respiratory effort Cardio: Rate: regular rate Rhythm: regular rhythm Heart sounds: S1 normal heart sound present and S2 normal heart sound present GI: Inspection: normal to inspection : External Female Exam: normal external appearance Speculum Exam - Vagina: normal appearance of the vagina Speculum Exam - Cervix: normal appearance of the cervix Bimanual exam- vagina & uterus: non-tender Bimanual Exam- Adnexa, other: tender bilaterally Assessment and Plan Assessment and plan (1) Pelvic pain: Code(s): R10.2 - Pelvic and perineal pain Status: Acute (2) Left ovarian cyst: Code(s): N83.202 - Unspecified ovarian cyst, left side Status: Acute Plan Proceed with laparoscopy and left ovarian cystectomy
[2024-12-13] VITALS (12 sets, daily range): BP systolic 96–112; BP diastolic 42–73; PULSE 48–66; RESP 16–18; TEMP 36.1–37.1; O2SAT 97–100
--- OUTSIDE RECORDS SUMMARY | 2024-12-13 02:54 | XMS_ITS | Clinical Summary ---
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
--- NOTE | 2024-12-13 06:49 | WPDHPUPDATE1 ---
History and Physical Update Update Date/Time: 12/13/24 06:49 History and Physical has been reviewed, including an updated exam of the patient. There are NO changes in the patient's condition. Risks, benefits, and alternatives have been discussed and questions answered. Patient agrees to proceed with procedure.
--- NOTE | 2024-12-13 07:22 | P.PNAN_ITS ---
Anes - Initial Pre Proc Eval Procedure: Operation Date: 12/13/24 09:15 Proposed Procedures p Laparoscopy with Left Ovarian Cystectomy - Isma Aguilar MD Date/Time: 12/13/24 07:22 Surgeon: Isma Aguilar MD Pre Op Diagnosis: left ovarian cyst, pelvic pain with dyspurenia Patient Data Age: 19 Gender: F Height: 1.68 m Weight: 67.27 kg Allergies Allergy/AdvReac Type Severity Reaction Status Date / Time No Known Allergies Allergy Verified 12/03/24 09:35 Home Medications ?Medication ?Instructions ?Recorded ?Confirmed ?Type hydrocodone 5 mg-acetaminophen 325 1 tablet PO Q4H PRN pain #20 tabs 12/13/24 Rx mg tablet Patient hx anesthesia problems: none Family hx anesthesia problems: none Results Review: All pre-operative results and documents have been reviewed as part of the pre- operative evaluation. [facility] Past Medical History Medical History (Updated 12/13/24 @ 07:23 by Felix Cesar DO) PTSD (post-traumatic stress disorder) Bipolar disorder History of epidural anesthesia 2022 Self-harming behavior Psychosocial problem Anxiety Depression Surgical History Surgical History No pertinent past surgical history Family History Family History Grandparent Cerebrovascular accident Congestive heart failure Diabetes mellitus Hypertension Prostate carcinoma Father Chronic obstructive pulmonary disease Liver cancer Kidney failure Hepatitis B Seizure Mother Chronic obstructive pulmonary disease Hypertension Social History Social History Smoking status: Current every day smoker Tobacco type: cigarettes and e-cigarettes/vaping Second hand tobacco smoke exposure: Yes Additional smoking assessment comments: VAPES DAILY ONLY SMOKES CIGARETTES IF SHE DOESNT HAVE HER VAPE Alcohol intake: current Alcohol use details: SOCIALLY Substance use: current Substance use type: marijuana Other substance usage details: smokes daily Lack of Transportation: No Lack of Food: Sometimes True Current Housing: I Have Housing Concerned About Future Housing: No Difficulty Paying Gas/Electric Bills: No Difficulty Paying for Meds: No Currently Unemployed: YES Education: Grade School Difficulty w/ Childcare or Family Care: No Living arrangements: with family Spiritual care concerns: No Anes - Eval Final PreProcedure Day of Procedure 12/13/24 07:22 Patient weight: normal Heart: regular rate and rhythm Lungs: clear to auscultation Airway: Mallampati scale class II and special considerations poor dentition Neurological: alert and oriented Last oral intake: >/= 8 hours ASA classification: III Emergent: no Anesthetic plan: proceed Anesthesia type and monitoring: general ETT and standard monitoring Results Review: All pre-operative results and documents have been reviewed as part of the pre- operative evaluation. Informed Consent: The patient's anesthetic plan and its attendant risks and benefits were discussed with the patient/family/POA. Questions were solicited and answers provided to the satisfaction of the patient/family/POA.
[2024-12-13] MEDS: ACETAMINOPHEN 500 MG TABLET 1000 MG PO (08:45)
[2024-12-13] MEDS: KETOROLAC 15 MG/ML VIAL (*BKC) IV PUSH (08:50)
[2024-12-13] MEDS: LACTATED RINGERS 1,000 ML 30 ML IV CONT ×2 (08:52→10:45)
[2024-12-13 08:59] LABS: BEDSIDEPREGUCG Negative (Negative)
--- NOTE | 2024-12-13 10:03 | W.PM.PROC2 ---
Procedure Note - Detailed Date of Procedure 12/13/24 Pre-op Diagnosis left ovarian cyst, pelvic pain with dyspurenia Post-op Diagnosis Same Procedure Performed Laparoscopy with left ovarian cyst destruction lysis of adhesions Surgeon Isma Aguilar MD Anesthesia General Indications 19-year-old female with large left ovarian cyst pelvic pain Findings Right ovary and tube. Uterus. Large omental adhesion was seen to the anterior abdominal wall. Of moderate to large-sized ovarian cyst which was simple in nature was present as well. Normal-appearing gallbladder and liver edge. Description of Procedure Patient was prepped and draped in the normal sterile fashion placed in dorsal lithotomy position. Under excellent general trach anesthesia weighted speculum placed in posterior fornix vagina. Anterior lip of the cervix grasped with a single-tooth tenaculum. Estevez's cannula and inserted the cervix attached to the single-tooth to be used later for uterine manipulation. After emptying the bladder of a very small amount of clear urine the weighted speculum was removed the gloves were changed. A supraumbilical incision made the Veress needle passed in the abdomen. Abdomen filled with CO2 gas [id number]. The 5mm trocar advanced under direct visualization assuring no injury patient placed in Trendelenburg. Suprapubic incision made the 5mm trocar advanced under direct visualization assuring no injury. The above findings were seen. The ovarian cyst was opened in linear fashion draining fair amount of follicular fluid. A large omental adhesion was seen anterior and this was sharply dissected until a clear irrigation undertaken until clear and no other abnormalities were seen photo documentation undertaken. Lower site removed. The gas removed from the abdomen. The upper site removed. Incisions closed with 4 Monocryl glue. Patient went recovery in satisfactory condition. All sponge, needle, instrument counts were correct. There were no immediate complications Estimated Blood Loss 5 Drains No Packing No Complications No immediate complications Condition Stable Disposition PACU
[2024-12-13] MEDS: fentaNYL CITRATE INJ (*CRX) 100 MCG/2 ML VIAL 25 MCG IV PUSH (10:33)
[2024-12-13] MEDS: oxyCODONE HCL (*CRX) 5 MG TAB IR PO (12:05)
== END 2024-12-13 13:00 | disposition home or self-care (01) ==
PROVIDERS: Visit Provider Obstetrics & Gynecology
PROC: (CPT 49320; principal; 2024-12-13 09:15)
DX: N83.292 Other ovarian cyst, left side (principal); K66.0 Peritoneal adhesions (postprocedural) (postinfection); F41.9 Anxiety disorder, unspecified; F43.10 Post-traumatic stress disorder, unspecified; F31.9 Bipolar disorder, unspecified; Z65.9 Problem related to unspecified psychosocial circumstances; F17.210 Nicotine dependence, cigarettes, uncomplicated; F17.290 Nicotine dependence, other tobacco product, uncomplicated; F12.90 Cannabis use, unspecified, uncomplicated; Z80.42 Family history of malignant neoplasm of prostate; Z80.0 Family history of malignant neoplasm of digestive organs; Z82.49 Family history of ischemic heart disease and other diseases of the circulatory system; Z79.891 Long term (current) use of opiate analgesic
CPT/HCPCS: 58662; A9270; J1100; J1885; J2250; J2405; J2704; J3010; J7120

== ENCOUNTER 2025-01-14 17:31 | Emergency (ER) | payer OTHER, SELFPAY ==
--- NOTE | 2025-01-14 18:15 | ED.GENADULT ---
HPI - General Adult General Chief complaint: Upper Respiratory Infection Stated complaint: URI Time Seen by Provider: 01/14/25 18:16 Focused HPI: Lindsay Bello is a 20 y/o female who presents with complaints of having URI symptoms that started yesterday. She states she has congestion, cough and body aches. GENERAL: in no acute distress. HEAD: Normocephalic, atraumatic. CHEST: ?No respiratory distress. HEART: Regular rate and rhythm.? NEURO: ?Alert and oriented x3. Patient screened in triage and initial orders placed.? ?Additional care and disposition to be based upon?diagnostic testing and treatment. Related Data Allergies Allergy/AdvReac Type Severity Reaction Status Date / Time No Known Allergies Allergy Verified 12/13/24 08:55 [facility] Past Medical History Medical History (Updated 01/15/25 @ 19:54 by Sun Rhoades APRN) PTSD (post-traumatic stress disorder) Bipolar disorder History of epidural anesthesia 2022 Self-harming behavior Psychosocial problem Anxiety Depression Surgical History Surgical History No pertinent past surgical history Family History Family History Grandparent Cerebrovascular accident Congestive heart failure Diabetes mellitus Hypertension Prostate carcinoma Father Chronic obstructive pulmonary disease Liver cancer Kidney failure Hepatitis B Seizure Mother Chronic obstructive pulmonary disease Hypertension Social History Social History Smoking status: Current every day smoker Tobacco type: cigarettes and e-cigarettes/vaping Second hand tobacco smoke exposure: Yes Additional smoking assessment comments: VAPES DAILY ONLY SMOKES CIGARETTES IF SHE DOESNT HAVE HER VAPE Alcohol intake: current Alcohol use details: SOCIALLY Substance use: current Substance use type: marijuana Other substance usage details: smokes daily Lack of Transportation: No Lack of Food: Sometimes True Current Housing: I Have Housing Concerned About Future Housing: No Difficulty Paying Gas/Electric Bills: No Difficulty Paying for Meds: No Currently Unemployed: YES Education: Grade School Difficulty w/ Childcare or Family Care: No Living arrangements: with family Spiritual care concerns: No Course Vital Signs Vital signs: Vital Signs Temperature 37.2 C 01/14/25 18:35 Pulse Rate 95 01/14/25 18:35 Respiratory Rate 16 01/14/25 18:35 Blood Pressure 100/56 L 01/14/25 18:35 Pulse Oximetry 99 01/14/25 18:35 Oxygen Delivery Room Air 01/14/25 18:35 Temperature 37.2 C 01/14/25 18:35 Pulse Rate 95 01/14/25 18:35 Respiratory Rate 16 01/14/25 18:35 Blood Pressure 100/56 L 01/14/25 18:35 Pulse Oximetry 99 01/14/25 18:35 Oxygen Delivery Room Air 01/14/25 18:35 Medical Decision Making Vital Signs Vital Signs: Vital Signs Temperature 37.2 C 01/14/25 18:35 Pulse Rate 95 01/14/25 18:35 Respiratory Rate 16 01/14/25 18:35 Blood Pressure 100/56 L 01/14/25 18:35 Pulse Oximetry 99 01/14/25 18:35 Oxygen Delivery Room Air 01/14/25 18:35 Temperature 37.2 C 01/14/25 18:35 Pulse Rate 95 01/14/25 18:35 Respiratory Rate 16 01/14/25 18:35 Blood Pressure 100/56 L 01/14/25 18:35 Pulse Oximetry 99 01/14/25 18:35 Oxygen Delivery Room Air 01/14/25 18:35 Discharge Plan Discharge Clinical Impression: Upper respiratory infection Qualifiers: URI type: unspecified URI Qualified Code(s): J06.9 - Acute upper respiratory infection, unspecified Patient Disposition: Elopement After Seen by Prov Patient Language: Czech Prescriptions: No Action hydrocodone-acetaminophen 5-325 mg tablet 1 tablet PO Q4H PRN (Reason: pain) Qty: 20 0RF Follow-up/Referrals: PHYSICIAN,INSULATION HELPER [Primary Care Provider, Internal Medicine]
[2025-01-14 18:35] VITALS: BP 100/56; PULSE 95; RESP 16; TEMP 37.2; O2SAT 99
--- NOTE | 2025-01-14 20:11 | PC.NURSE ---
Pt was called to triage 2 twice to complete orders. Pt had MSE and left prior to testing.
--- OUTSIDE RECORDS SUMMARY | 2025-01-14 20:25 | XMS_ITS | Clinical Summary ---
Author Organization [facility] [address] [facility] Address [address] [place] [address] Care Team Providers Care Catalogue Clerk Name Role Phone Unknown, Notinfile Primary Care [...] on file Legal Sex Female 7:42 PM INSURANCE HEALTHCARE CONSULTANT Gender Identity Not on file Sexual Orientation [...] HPV Vaccines Completed 04/23/2015, 05/2014, 01/17/2014 Insurance [facility] Care Teams Catalogue Clerk Relationship Specialty Start Date End Date Unknown, Notinfile PCP - General 10/24/18
== END 2025-01-14 20:28 | disposition left against medical advice (07) ==
LOC: ANHED 20:24
PROVIDERS: Emergency Provider Nurse Practitioner Family
DX: J06.9 Acute upper respiratory infection, unspecified (principal); F17.210 Nicotine dependence, cigarettes, uncomplicated; F17.290 Nicotine dependence, other tobacco product, uncomplicated
CPT/HCPCS: 99281